=== PATIENT | female | born 1970 | race Caucasian/White ===

== ENCOUNTER 2016-06-06 13:01 | Emergency (ER) | payer OTHER ==
[~2016-06-06] VITALS: Ht 162.6 cm; Wt 76.0 kg
[2016-06-06 13:06] VITALS: Ht 162.6 cm; Wt 76.0 kg
[2016-06-06] MEDS ORDERED: MULTTAB58 PO (13:48)
[2016-06-06] MEDS ORDERED: ASPI-232 PO (13:48)
[2016-06-06] MEDS ORDERED: MAGN400T6 PO (13:48)
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
[2016-06-06] MEDS ORDERED: OPTIRAY 320 IV PRN (14:15)
[2016-06-06 14:51] LABS: BASO % 0.1 %; BASO ABS # 0.03 K/uL (0-0.2); COMPLETE YES; HEMATOCRIT 41.6 % (37-47); IG% 0.4 %; LYMPH % 6.9 %; LYMPH ABS # 1.52 K/uL (1.2-3.4); MEAN CELL VOLUME 89.7 fL (80-100); MEAN CORPUSCULAR HEMOGLOBIN 31.5 pg (25-34); MEAN CORPUSCULAR HGB CONC 35.1 g/dl (32-36); MEAN PLATELET VOLUME 9.6 fL (7.4-10.4); MONO % 5.2 %; NEUT % 87.4 %; PLATELET COUNT 313 K/uL (130-400); RED BLOOD COUNT 4.64 M/uL (4.2-5.4); WHITE BLOOD COUNT 21.92 K/uL (4.8-10.8)
[2016-06-06 14:51] LABS: ISTAT CREATININE 0.7 mg/dl (0.6-1.3); ISTAT HEMOGLOBIN 14.6 g/dl (12.0-16.0); ISTAT IONIZED CALCIUM 1.16 mmol/l (1.12-1.32)
[2016-06-06 15:03] LABS: PROTHROMBIN TIME (PATIENT) 10.9 SECONDS (9.0-12.0)
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
[2016-06-06 16:54] LABS: URINE APPEARANCE CLEAR (CLEAR); URINE BILIRUBIN NEG (NEG); URINE COLOR YELLOW; URINE NITRITE NEG (NEG); URINE SPECIFIC GRAVITY > 1.045 (1.000-1.030); UROBILINOGEN NEG (NEG); ZZUR CULT IF INDIC CLEAN CATCH NO
[2016-06-06 16:57] LABS: MANUAL MICROSCOPIC REQUIRED? NO; REVIEW REQ? NO
[2016-06-06 17:20] VITALS: BP 139/79; PULSE 88; TEMP 36.7; O2SAT 98
== END 2016-06-06 17:20 | disposition short-term general hospital (02) ==
LOC: C.EDD 13:05
DX: S02.80XA Fracture of other specified skull and facial bones, unspecified side, initial encounter for closed fracture (principal); S43.101A Unspecified dislocation of right acromioclavicular joint, initial encounter; V43.62XA Car passenger injured in collision with other type car in traffic accident, initial encounter; K66.8 Other specified disorders of peritoneum; K42.9 Umbilical hernia without obstruction or gangrene; F17.200 Nicotine dependence, unspecified, uncomplicated; Z86.73 Personal history of transient ischemic attack (TIA), and cerebral infarction without residual deficits; Z79.82 Long term (current) use of aspirin